=== PATIENT | female | born 1985 ===

== ENCOUNTER 2023-04-26 09:22 | Inpatient (IN) ==
[2023-04-26] MEDS ORDERED: PENICILLIN GK 6 MU in DEXTROSE 5% 250 ML IV STA (09:45)
[2023-04-26] MEDS ORDERED: OXYTOCIN 30 UNITS/NSS 30 UNITS/500 ML BAG IV PRN ×2 (09:45→15:19)
[2023-04-26] MEDS ORDERED: LIDOCAINE 1% LOCAL 20 ML VIAL INFIL PRN (09:45)
[2023-04-26] MEDS ORDERED: Patient's ALLERGY Info needs ENTERED STA (09:51)
[2023-04-26] MEDS: LACTATED RINGER'S 1,000 ML IV PRN ×2 (10:00→16:16)
[2023-04-26 10:16] LABS: Hematocrit (blood only) 42.7 % (37.0-47.0); Hemoglobin 14.2 g/dl (12.0-16.0); Mean Corpuscular Hemoglobin 28.7 pg (25.0-34.0); Mean Corpuscular Hgb Conc 33.3 g/dL (32.0-36.0); Mean Corpuscular Volume 86.3 fL (80.0-100.0); Mean Platelet Volume 12.7 fL (9.4-12.4); Platelet Count 242 K/uL (130-400); RDW Coefficient of Variation 14.4 % (11.5-14.5); RDW Standard Deviation 44.4 fL (36.4-46.3); Red Blood Count 4.95 M/uL (4.20-5.40); White Blood Count 16.26 K/ul (4.8-10.8)
[2023-04-26] MEDS ORDERED: BUPIVACAINE 0.25% PF 30 ML VIAL ONE (10:16)
[2023-04-26] MEDS ORDERED: fentaNYL citrate PF 100 MCG/2 ML VIAL ONE ×2 (10:16→18:56)
[2023-04-26] MEDS ORDERED: fentANYL 2 MCG/ML BUPIVacaine 0.125%-NSS 100ML BAG ONE (10:16)
[2023-04-26] MEDS ORDERED: LIDOCAINE 2%/EPINEPHRINE 1:200,000 20 ML PF ONE ×2 (10:16→18:56)
[2023-04-26] MEDS ORDERED: ePHEDrine sulfate 50 MG/ML AMP ONE (10:16)
[2023-04-26] MEDS ORDERED: SODIUM CHLORIDE 0.9% PF INJ 10 ML VIAL ONE (10:16)
[2023-04-26 10:30] LABS: Albumin Level 3.6 gm/dl (3.4-5.0); Anion Gap 15 (3-11); Bilirubin,Total 0.3 mg/dl (0.2-1.0); Calcium 9.3 mg/dl (8.6-10.3); Carbon Dioxide 16 mmol/L (21-32); Chloride 102 mmol/L (98-107); Potassium 3.6 mmol/L (3.5-5.1); Sodium 133 mmol/L (136-145)
[2023-04-26 10:36] LABS: Alanine Aminotransferase 33 U/L (7-52); Albumin Globulin Ratio 1.1 (0.9-2); Alkaline Phosphatase 812 U/L (34-104); Aspartate Aminotransferase 33 U/L (13-39); Blood Urea Nitrogen 10 mg/dl (6-23); Est GFR (African American) 82.2 ml/min; Est GFR (Non-African American) 70.9 ml/min; Globulin 3.4 gm/dl (2.5-4.0); Glucose 87 mg/dl (70-99(Fasting)); Lactate Dehydrogenase 251 U/L (86-244); Uric Acid 6.2 mg/dl (2.6-7.2)
--- NOTE | 2023-04-26 10:36 | History & Physical Report ---
Date of Service April 26, 2023 History of Present Illness Chief Complaint: onset of labor with SROM Primary Care Provider: NO PCP 38 F P0000 at 40.1 weeks admitted in active labor after SROM clear fluid at 0230 today. GBS is positive. Allergies Allergy/AdvReac Type Severity Reaction Status Date / Time No Known Allergies Allergy Verified 04/26/23 09:55 Home Medications Medication Instructions Recorded Confirmed Type ferrous sulfate 325 mg (65 mg 325 mg PO DAILY 04/26/23 04/26/23 History iron) tablet (iron) vit no.95-ferrous 1 tab PO DAILY 04/26/23 04/26/23 History fumarate 28 mg-folic acid 800 mcg tablet () Patient History Medical History Anemia affecting first Surgical History Pitman teeth removed Family History Other No history of previous surgery No known health problems OB History primip KENNEL HAND History neg Review of Systems All systems reviewed & are unremarkable except as noted in HPI & below Physical Exam Constitutional: WD/WN, vitals as above Eyes: PERRL, conjunctivae normal, anicteric sclerae Respiratory: normal respiratory effort, lungs clear to auscultation Cardiovascular: Rate/Rhythm: regular rate and regular rhythm Gastrointestinal (Abdomen): Inspection/Auscultation: abdomen normal to inspection Skin: no rashes, warm and dry Neurologic: patellar DTR's 2+ bilat, sensation intact Psychiatric: A+Ox3, euthymic affect Genitourinary: Manual OB Exam: + cervical dilation 8 cm, + cervical effacement 100%, + station -2 and -1 and + amniotic fluid clear OB Exam Monitor Tracing: + external FHT monitor used, + external uterine monitor used, + category I and + normal FHT variability Code Status & VTE Plan VTE Prophylaxis Plan VTE Prophylaxis will be ordered: No
[2023-04-26] MEDS ORDERED: BUPIVACAINE 0.25% PF 30 ML VIAL EPI STA (10:43)
[2023-04-26] MEDS ORDERED: NALOXONE HCL 1 MG in SODIUM CHLORIDE 0.9% 1,000 ML IV PRN (10:43)
[2023-04-26] MEDS ORDERED: diphenhydrAMINE 50 MG/ML VIAL IV PRN (10:43)
[2023-04-26] MEDS ORDERED: ePHEDrine sulfate 50 MG/ML AMP IV PRN (10:43)
[2023-04-26] MEDS ORDERED: BUPIVACAINE 0.25% PF 30 ML VIAL EPI PRN (10:43)
[2023-04-26] MEDS ORDERED: NALBUPHINE HCL 5 MG in SYRINGE 0 ML IV PRN (10:43)
[2023-04-26] MEDS ORDERED: ROPIVACAINE 0.5% PF 5 MG/ML 20 ML VIAL EPI PRN (10:43)
[2023-04-26] MEDS ORDERED: SODIUM CHLORIDE 0.9% PF INJ 10 ML VIAL EPI STA (10:43)
[2023-04-26] MEDS ORDERED: fentaNYL citrate PF 100 MCG/2 ML VIAL EPI PRN (10:43)
[2023-04-26] MEDS ORDERED: fentaNYL citrate PF 100 MCG/2 ML VIAL EPI STA (10:43)
[2023-04-26] MEDS ORDERED: LIDOCAINE 2% MPF LOCAL 5 ML VIAL EPI PRN (10:43)
[2023-04-26] MEDS ORDERED: SODIUM CHLORIDE 0.9% PF INJ 10 ML VIAL EPI PRN (10:43)
[2023-04-26] MEDS ORDERED: NALOXONE HCL 0.4 MG/1 ML VIAL/CARP IV PRN (10:43)
[2023-04-26] MEDS ORDERED: LIDOCAINE 2%/EPINEPHRINE 1:200,000 20 ML PF EPI STA (10:43)
[2023-04-26] MEDS ORDERED: ONDANSETRON INJ 2 MG/ML 2 ML VIAL IV PRN (10:43)
--- NOTE | 2023-04-26 10:43 | Anesthesiology Consultation ---
Date of Service April 26, 2023 Assessment & Plan ASA ASA2 Proposed Anesthesia Anesthesia Type: Labor Epidural Risk / Benefits Reviewed With: PT / POA / Parent / Guardian, Accepts Plan and Informed Consent Obtained History Allergies Allergy/AdvReac Type Severity Reaction Status Date / Time fructose AdvReac Vomiting Verified 04/26/23 11:24 lactose AdvReac Vomiting Verified 04/26/23 11:24 Medications Home Medications Medication Instructions Recorded Confirmed Last Taken ferrous sulfate 325 mg (65 mg 325 mg PO DAILY 04/26/23 04/26/23 04/24/23 19:00 iron) tablet (iron) vit no.95-ferrous 1 tab PO DAILY 04/26/23 04/26/23 04/25/23 19:00 fumarate 28 mg-folic acid 800 mcg tablet () Active Medications Generic Name Dose Route Start Last Admin Trade Name Freq PRN Reason Stop Dose Admin Lactated Ringer's 1,000 mls @ 125 mls/hr 04/26/23 09:45 04/26/23 10:00 Lr IV 04/28/23 09:44 999 mls/hr .Q8H PRN Administration L&D Protocol Protocol Past Medical History Medical History Anemia affecting first Exercise / Class Metabolic Activity II 4-5 Yardwork/Stairs/Walk up hill Past Family History Family History Other No history of previous surgery No known health problems Past Surgical History Surgical History [place] teeth removed Past Anesthesia History No Hx of Anesthesia Complications and No Family Hx of Anesthesia Complications History of PONV No Hx of PONV and No Hx of Motion Sickness Review of Systems denies fever/cough/ colds/ chest pain/ SOB/ BEATRIZ denies BEATRIZ Physical Exam Vital Signs Last Vital Signs Resp 20 04/26/23 10:42 ENMT Mouth: no TMJ abnormality and no dentition abnormality Thyromental Distance: > or= 3.5 Finger Breadths Mallampati Class: II Neck neck extension not limited Respiratory normal respiratory effort; no respiratory distress Auscultation: lungs clear to auscultation bilaterally Cardiovascular Rate/Rhythm: regular rate and regular rhythm Neurologic moves all extremities Psychiatric Orientation: alert and oriented x 3 Testing Laboratory Results 04/26/23 10:01 04/26/23 10:01
[2023-04-26 11:02] LABS: Creatinine Urine Random 112.6 mg/dl; Protein Creatinine Ratio Urine 0.3 (0-0.2); Total Protein Urine Random 36.9 mg/dl (0-11.9)
[2023-04-26] MEDS ORDERED: CALCIUM CARBONATE 500 MG CHEWABLE TAB PO PRN (13:09)
[2023-04-26] MEDS: PENICILLIN GK 3 MU in DEXTROSE 5% 100 ML IV PRN ×2 (14:29→18:35)
[2023-04-26] MEDS: fentANYL 2 MCG/ML BUPIVacaine 0.125%-NSS 100ML BAG EPI PRN ×2 (15:37→19:20)
[2023-04-26] MEDS ORDERED: ROPIVACAINE 0.5% 5 MG/ML 30 ML VIAL ONE (18:56)
--- NOTE | 2023-04-26 19:14 | Anesthesia Procedure Note ---
Date of Service April 26, 2023 Anesthesia Epidural Re-Dose Vital Signs Temp Pulse Resp BP Pulse Ox 36.3 C L 90 20 172/85 H 100 04/26/23 18:06 04/26/23 19:11 04/26/23 18:06 04/26/23 19:08 04/26/23 19:11 Notes Pain Intensity: 8 Dilatation (cm): 9.5 Effacement (%): 100 Called by nursing to evaluate epidural as the patient is having increased pain. The epidural was re-dosed with the following medications (all medications via epidural route) after negative aspiration of the epidural catheter for CSF/HEME. 2ml 2% lidocaine with epi, 3mL ropivacaine 0.5% and 100 mcg fetanyl via epidural pt had difficulty lifting her legs because of numbness. pt c/o all over pain. there is a small "hot spot" on her right side near her right hip. After Epidural Re-Dose Mental Status: alert / awake / arousable Pain: improving with treatment Airway Patency, RR, SpO2: stable & adequate BP & HR: stable & adequate
[2023-04-26 23:33] LABS: Cord Venous Blood PCO2 112 mmHg (30.4-57.2); Cord Venous Blood PO2 < 20 mmHg (14.1-43.3); Cord Venous Blood pH < 7.00 (7.20-7.44); O2 Saturation Cord Venous Bld < 60.0 % (<68)
[2023-04-26 23:34] LABS: CO2 Cord Arterial Blood 97 mmHg (39.1-73.5); Oxygen Sat Cord Arterial Blood < 60.0 % (<60); PO2 Cord Arterial Blood 25 mmHg (4.1-31.7); pH Cord Arterial Blood < 7.00 (7.1-7.38)
--- NOTE | 2023-04-26 23:55 | Delivery Summary ---
Vaginal Delivery Summary Date of Service April 26, 2023 Vaginal Delivery Summary live male OLIVERIO with MLE done after verbal consent from patient due to persistent deep variables with pushing. Apgars and weight pending. Cord gas sent to lab stat. Placenta delivered spontaneously and intact. 1% Lidocaine infiltrated and second degree MLE repaired with 3/0 Vicryl suture. EBL 250 ml. Final sponge, needle and instrument count are correct. Mom stable and baby to nursery.
[2023-04-27] MEDS ORDERED: BENZOCAINE 20% SPRY 85 APPLN/85 GM CAN EXT PRN (00:18)
[2023-04-27] MEDS ORDERED: HYDROCORTISONE ACETATE 25 MG SUPP PR PRN (00:18)
[2023-04-27] MEDS ORDERED: bisacodyL 10 MG SUPP PR PRN (00:18)
[2023-04-27] MEDS ORDERED: DIPHTHERIA/TETANUS/PERTUSSIS Vaccine (Tdap, Age 7+yrs) 0.5mL SYR/VL IM ONE (00:18)
[2023-04-27] MEDS ORDERED: OXYTOCIN 30 UNITS/NSS 30 UNITS/500 ML BAG IV PRN (00:18)
[2023-04-27] MEDS ORDERED: ACETAMINOPHEN 325 MG TAB PO PRN (00:18)
--- NOTE | 2023-04-27 02:48 | Anesthesia Procedure Note ---
Date of Service April 27, 2023 Anesthesia Post Epidural Note Vital Signs Vital Signs: Temp Pulse Resp BP Pulse Ox 36.7 C 102 H 18 142/59 H 94 04/27/23 01:35 04/27/23 01:36 04/27/23 01:35 04/27/23 01:36 04/26/23 23:18 Pain Intensity Bilateral Abdomen: Pain Intensity: 0 Notes Mental Status: alert / awake / arousable and participated in evaluation Nausea / Vomiting: adequately controlled Pain: adequately controlled Airway Patency, RR, SpO2: stable & adequate BP & HR: stable & adequate Hydration State: stable & adequate Neuraxial Anesthesia: was administered and sensory block resolved Anesthetic Complications: no major complications apparent and Pt Satisfied with anesthetic care Epidural: Removed without complications and With tip intact
[2023-04-27] MEDS: IBUPROFEN 600 MG TAB PO PRN ×4 (04:37→22:23)
[2023-04-27 07:14] LABS: Hematocrit (blood only) 34.8 % (37.0-47.0); Hemoglobin 11.8 g/dl (12.0-16.0); Mean Corpuscular Hgb Conc 33.9 g/dL (32.0-36.0); Mean Corpuscular Volume 85.5 fL (80.0-100.0); Mean Platelet Volume 12.8 fL (9.4-12.4); Platelet Count 207 K/uL (130-400); RDW Coefficient of Variation 14.8 % (11.5-14.5); RDW Standard Deviation 44.7 fL (36.4-46.3); Red Blood Count 4.07 M/uL (4.20-5.40); White Blood Count 30.76 K/ul (4.8-10.8)
--- NOTE | 2023-04-27 08:40 | Obstetrical Progress Note ---
Date of Service April 27, 2023 Assessment & Plan Admission and Anticipated Discharge Date Admission Date: April 26, 2023 Subjective Patient is seen and examined. She feels well, no complaints. Hs not ambulated yet, left leg was numb but now coming back. Used bed side commode and urinated. Tolerating regular diet with out N&V Bleeding is minimal No fever/ chills/ CP/ SOB/ N&V/ Leg pain/ MENDEZ Pumping her milk, baby was transferred to [facility] Vital Signs Temp Pulse Pulse Resp BP BP Pulse Ox 04/27/23 03:05 36.6 C 103 H 20 145/92 H 99 04/27/23 01:36 102 H 142/59 H 04/27/23 01:35 36.7 C 18 04/27/23 01:20 113 H 138/66 04/27/23 01:17 108 H 140/86 04/27/23 01:05 18 04/27/23 00:50 97 H 160/99 H 04/27/23 00:35 20 04/27/23 00:35 100 H 160/87 H 04/27/23 00:20 16 04/27/23 00:20 100 H 162/85 H 04/27/23 00:05 18 04/27/23 00:05 103 H 150/82 H 04/26/23 23:50 18 04/26/23 23:50 111 H 162/88 H 04/26/23 23:36 113 H 146/89 H 04/26/23 23:35 36.6 C 20 04/26/23 23:18 123 H 94 04/26/23 23:14 129 H 93 04/26/23 23:13 135 H 88 L 04/26/23 23:08 134 H 162/73 H 100 04/26/23 23:03 136 H 94 04/26/23 22:58 147 H 95 04/26/23 22:55 148 H 20 158/121 H 04/26/23 22:53 146 H 92 04/26/23 22:51 151 H 94 04/26/23 22:48 150 H 94 04/26/23 22:46 151 H 90 04/26/23 22:43 144 H 97 04/26/23 22:41 156 H 86 L 04/26/23 22:40 16 04/26/23 22:40 16 04/26/23 22:38 93 04/26/23 22:38 143 H 04/26/23 22:38 153 H 141/94 H 04/26/23 22:35 155 H 93 04/26/23 22:32 144 H 95 04/26/23 22:29 141 H 91 04/26/23 22:27 147 H 99 04/26/23 22:23 143 H 91 04/26/23 22:22 133 H 171/94 H 98 04/26/23 22:17 132 H 98 04/26/23 22:16 136 H 84 L 04/26/23 22:12 138 H 99 04/26/23 22:11 137 H 75 L 04/26/23 22:10 18 04/26/23 22:10 18 04/26/23 22:07 144 H 100 04/26/23 22:02 115 H 99 04/26/23 21:57 119 H 99 04/26/23 21:55 146 H 18 86 L 04/26/23 21:52 107 H 100 04/26/23 21:47 112 H 98 04/26/23 21:42 109 H 99 04/26/23 21:38 116 H 93 04/26/23 21:37 112 H 159/98 H 04/26/23 21:36 117 H 99 04/26/23 21:31 119 H 98 04/26/23 21:26 108 H 98 04/26/23 21:25 18 04/26/23 21:25 36.7 C 18 04/26/23 21:23 102 H 157/92 H 04/26/23 21:21 100 04/26/23 21:21 115 H 04/26/23 21:21 102 H 88 L 04/26/23 21:16 90 99 04/26/23 21:12 94 H 93 04/26/23 21:11 92 H 96 04/26/23 21:08 78 139/71 04/26/23 21:06 81 97 04/26/23 21:01 76 97 04/26/23 21:00 16 04/26/23 21:00 16 04/26/23 20:56 80 97 04/26/23 20:53 78 140/68 04/26/23 20:51 78 99 04/26/23 20:46 85 98 04/26/23 20:41 76 98 O2 Del Method 12/14/23 03:05 Room Air 04/27/23 01:36 04/27/23 01:35 04/27/23 01:20 04/27/23 01:17 04/27/23 01:05 04/27/23 00:50 04/27/23 00:35 04/27/23 00:35 04/27/23 00:20 04/27/23 00:20 04/27/23 00:05 04/27/23 00:05 04/26/23 23:50 04/26/23 23:50 04/26/23 23:36 04/26/23 23:35 04/26/23 23:18 04/26/23 23:14 04/26/23 23:13 04/26/23 23:08 04/26/23 23:03 04/26/23 22:58 04/26/23 22:55 04/26/23 22:53 04/26/23 22:51 04/26/23 22:48 04/26/23 22:46 04/26/23 22:43 04/26/23 22:41 04/26/23 22:40 04/26/23 22:40 04/26/23 22:38 04/26/23 22:38 04/26/23 22:38 04/26/23 22:35 04/26/23 22:32 04/26/23 22:29 04/26/23 22:27 04/26/23 22:23 04/26/23 22:22 04/26/23 22:17 04/26/23 22:16 04/26/23 22:12 04/26/23 22:11 04/26/23 22:10 04/26/23 22:10 04/26/23 22:07 04/26/23 22:02 04/26/23 21:57 04/26/23 21:55 04/26/23 21:52 04/26/23 21:47 04/26/23 21:42 04/26/23 21:38 04/26/23 21:37 04/26/23 21:36 04/26/23 21:31 04/26/23 21:26 04/26/23 21:25 04/26/23 21:25 04/26/23 21:23 04/26/23 21:21 04/26/23 21:21 04/26/23 21:21 04/26/23 21:16 04/26/23 21:12 04/26/23 21:11 04/26/23 21:08 04/26/23 21:06 04/26/23 21:01 04/26/23 21:00 04/26/23 21:00 04/26/23 20:56 04/26/23 20:53 04/26/23 20:51 04/26/23 20:46 04/26/23 20:41 Lab Results 04/26/23 04/26/23 04/26/23 Range/Units 10:01 23:02 23:02 WBC 16.26 H (4.8-10.8) K/ul RBC 4.95 (4.20-5.40) M/uL Hgb 14.2 (12.0-16.0) g/dl Hct 42.7 (37.0-47.0) % MCV 86.3 (80.0-100.0) fL MCH 28.7 (25.0-34.0) pg MCHC 33.3 (32.0-36.0) g/dL RDW Std Deviation 44.4 (36.4-46.3) fL RDW Coeff of Robb 14.4 (11.5-14.5) % Plt Count 242 (130-400) K/uL MPV 12.7 H (9.4-12.4) fL Cord ABG pH < 7.00 L (7.1-7.38) Cord ABG pCO2 97 H (39.1-73.5) mmHg Cord ABG pO2 25 (4.1-31.7) mmHg Cord ABG HCO3 TNP Cord ABG Base Excess TNP Cord ABG O2 Sat < 60.0 (<60) % Cord VBG pH < 7.00 L (7.20-7.44) Cord VBG pCO2 112 H (30.4-57.2) mmHg Cord VBG pO2 < 20 (14.1-43.3) mmHg Cord VBG HCO3 TNP Cord VBG Base Excess TNP Cord VBG O2 Sat < 60.0 (<68) % Blood Gas Comments LÓPEZ LÓPEZ Sodium 133 L (136-145) mmol/L Potassium 3.6 (3.5-5.1) mmol/L Chloride 102 (98-107) mmol/L Carbon Dioxide 16 L (21-32) mmol/L Anion Gap 15 H (3-11) BUN 10 (6-23) mg/dl Creatinine 1.00 (0.6-1.2) mg/dl Est Cr Clr Drug Dosing Not Reportable Est GFR ( Amer) 82.2 ml/min Est GFR (Non-Af Amer) 70.9 ml/min BUN/Creatinine Ratio 10.0 (10-20) Glucose 87 (70-99(Fasting)) mg/dl Lactate (0.4-2.0) mmol/L Uric Acid 6.2 (2.6-7.2) mg/dl Calcium 9.3 (8.6-10.3) mg/dl Total Bilirubin 0.3 (0.2-1.0) mg/dl Direct Bilirubin 0.0 (0-0.2) mg/dl AST 33 (13-39) U/L ALT 33 (7-52) U/L Alkaline Phosphatase 812 H (34-104) U/L Lactate Dehydrogenase 251 H (86-244) U/L Total Protein 7.0 (6.0-8.3) gm/dl Albumin 3.6 (3.4-5.0) gm/dl Globulin 3.4 (2.5-4.0) gm/dl Albumin/Globulin Ratio 1.1 (0.9-2) Ur Random Creatinine mg/dl U Random Total Protein (0-11.9) mg/dl Protein/Creatinin Ratio (0-0.2) 04/26/23 04/27/23 04/27/23 Range/Units Unknown 06:21 08:28 WBC 30.76 H* D (4.8-10.8) K/ul RBC 4.07 L (4.20-5.40) M/uL Hgb 11.8 L (12.0-16.0) g/dl Hct 34.8 L (37.0-47.0) % MCV 85.5 (80.0-100.0) fL MCH 29.0 (25.0-34.0) pg MCHC 33.9 (32.0-36.0) g/dL RDW Std Deviation 44.7 (36.4-46.3) fL RDW Coeff of Robb 14.8 H (11.5-14.5) % Plt Count 207 (130-400) K/uL MPV 12.8 H (9.4-12.4) fL Cord ABG pH (7.1-7.38) Cord ABG pCO2 (39.1-73.5) mmHg Cord ABG pO2 (4.1-31.7) mmHg Cord ABG HCO3 Cord ABG Base Excess Cord ABG O2 Sat (<60) % Cord VBG pH (7.20-7.44) Cord VBG pCO2 (30.4-57.2) mmHg Cord VBG pO2 (14.1-43.3) mmHg Cord VBG HCO3 Cord VBG Base Excess Cord VBG O2 Sat (<68) % Blood Gas Comments Sodium (136-145) mmol/L Potassium (3.5-5.1) mmol/L Chloride (98-107) mmol/L Carbon Dioxide (21-32) mmol/L Anion Gap (3-11) BUN (6-23) mg/dl Creatinine (0.6-1.2) mg/dl Est Cr Clr Drug Dosing Est GFR ( Amer) ml/min Est GFR (Non-Af Amer) ml/min BUN/Creatinine Ratio (10-20) Glucose (70-99(Fasting)) mg/dl Lactate 2.0 (0.4-2.0) mmol/L Uric Acid (2.6-7.2) mg/dl Calcium (8.6-10.3) mg/dl Total Bilirubin (0.2-1.0) mg/dl Direct Bilirubin (0-0.2) mg/dl AST (13-39) U/L ALT (7-52) U/L Alkaline Phosphatase (34-104) U/L Lactate Dehydrogenase (86-244) U/L Total Protein (6.0-8.3) gm/dl Albumin (3.4-5.0) gm/dl Globulin (2.5-4.0) gm/dl Albumin/Globulin Ratio (0.9-2) Ur Random Creatinine 112.6 mg/dl U Random Total Protein 36.9 H (0-11.9) mg/dl Protein/Creatinin Ratio 0.3 H (0-0.2) PE: General: Alert, orientedx3, NAD Abd: soft, NT, fundus firm, below Umbilicus Perineum intact, Lochia rubra minimal Ext; NT, 1+ edema on dordum of feet and legs, Homans sign ne/ neg, able to move left leg but waker than right side AP: 38 yo s/p , ppd# 1 VSS Afebrile WBCC elevated at 30K, prolonged ROM, intraamniotic infection? Plan to run more labs and start IV AB Elevated BP, no symptoms, check LFT Continue to monitor closely All questions were answered D/C home tomorrow Results & Data Vital Signs (Past 12 Hours) Vital Signs Temp Pulse Pulse Resp BP BP Pulse Ox 04/27/23 03:05 36.6 C 103 H 20 145/92 H 99 04/27/23 01:36 102 H 142/59 H 04/27/23 01:35 36.7 C 18 04/27/23 01:20 113 H 138/66 04/27/23 01:17 108 H 140/86 04/27/23 01:05 18 04/27/23 00:50 97 H 160/99 H 04/27/23 00:35 20 04/27/23 00:35 100 H 160/87 H 04/27/23 00:20 16 04/27/23 00:20 100 H 162/85 H 04/27/23 00:05 18 04/27/23 00:05 103 H 150/82 H 04/26/23 23:50 18 04/26/23 23:50 111 H 162/88 H 04/26/23 23:36 113 H 146/89 H 04/26/23 23:35 36.6 C 20 04/26/23 23:18 123 H 94 04/26/23 23:14 129 H 93 04/26/23 23:13 135 H 88 L 04/26/23 23:08 134 H 162/73 H 100 04/26/23 23:03 136 H 94 04/26/23 22:58 147 H 95 04/26/23 22:55 148 H 20 158/121 H 04/26/23 22:53 146 H 92 04/26/23 22:51 151 H 94 04/26/23 22:48 150 H 94 04/26/23 22:46 151 H 90 04/26/23 22:43 144 H 97 04/26/23 22:41 156 H 86 L 04/26/23 22:40 16 04/26/23 22:40 16 04/26/23 22:38 93 04/26/23 22:38 143 H 04/26/23 22:38 153 H 141/94 H 04/26/23 22:35 155 H 93 04/26/23 22:32 144 H 95 04/26/23 22:29 141 H 91 04/26/23 22:27 147 H 99 04/26/23 22:23 143 H 91 04/26/23 22:22 133 H 171/94 H 98 04/26/23 22:17 132 H 98 04/26/23 22:16 136 H 84 L 04/26/23 22:12 138 H 99 04/26/23 22:11 137 H 75 L 04/26/23 22:10 18 04/26/23 22:10 18 04/26/23 22:07 144 H 100 04/26/23 22:02 115 H 99 04/26/23 21:57 119 H 99 04/26/23 21:55 146 H 18 86 L 04/26/23 21:52 107 H 100 04/26/23 21:47 112 H 98 04/26/23 21:42 109 H 99 04/26/23 21:38 116 H 93 04/26/23 21:37 112 H 159/98 H 04/26/23 21:36 117 H 99 04/26/23 21:31 119 H 98 04/26/23 21:26 108 H 98 04/26/23 21:25 18 04/26/23 21:25 36.7 C 18 04/26/23 21:23 102 H 157/92 H 04/26/23 21:21 100 04/26/23 21:21 115 H 04/26/23 21:21 102 H 88 L 04/26/23 21:16 90 99 04/26/23 21:12 94 H 93 04/26/23 21:11 92 H 96 04/26/23 21:08 78 139/71 04/26/23 21:06 81 97 04/26/23 21:01 76 97 04/26/23 21:00 16 04/26/23 21:00 16 04/26/23 20:56 80 97 04/26/23 20:53 78 140/68 04/26/23 20:51 78 99 04/26/23 20:46 85 98 04/26/23 20:41 76 98 04/26/23 20:37 81 138/72 O2 Del Method 04/27/23 03:05 Room Air 04/27/23 01:36 04/27/23 01:35 04/27/23 01:20 04/27/23 01:17 04/27/23 01:05 04/27/23 00:50 04/27/23 00:35 04/27/23 00:35 04/27/23 00:20 04/27/23 00:20 04/27/23 00:05 04/27/23 00:05 04/26/23 23:50 04/26/23 23:50 04/26/23 23:36 04/26/23 23:35 04/26/23 23:18 04/26/23 23:14 04/26/23 23:13 04/26/23 23:08 04/26/23 23:03 04/26/23 22:58 04/26/23 22:55 04/26/23 22:53 04/26/23 22:51 04/26/23 22:48 04/26/23 22:46 04/26/23 22:43 04/26/23 22:41 04/26/23 22:40 04/26/23 22:40 04/26/23 22:38 04/26/23 22:38 04/26/23 22:38 04/26/23 22:35 04/26/23 22:32 04/26/23 22:29 04/26/23 22:27 04/26/23 22:23 04/26/23 22:22 04/26/23 22:17 04/26/23 22:16 04/26/23 22:12 04/26/23 22:11 04/26/23 22:10 04/26/23 22:10 04/26/23 22:07 04/26/23 22:02 04/26/23 21:57 04/26/23 21:55 04/26/23 21:52 04/26/23 21:47 04/26/23 21:42 04/26/23 21:38 04/26/23 21:37 04/26/23 21:36 04/26/23 21:31 04/26/23 21:26 04/26/23 21:25 04/26/23 21:25 04/26/23 21:23 04/26/23 21:21 04/26/23 21:21 04/26/23 21:21 04/26/23 21:16 04/26/23 21:12 04/26/23 21:11 04/26/23 21:08 04/26/23 21:06 04/26/23 21:01 04/26/23 21:00 04/26/23 21:00 04/26/23 20:56 04/26/23 20:53 04/26/23 20:51 04/26/23 20:46 04/26/23 20:41 04/26/23 20:37
[2023-04-27 08:45] LABS: Hematocrit (blood only) 34.6 % (37.0-47.0); Hemoglobin 11.6 g/dl (12.0-16.0); Mean Corpuscular Hemoglobin 28.5 pg (25.0-34.0); Mean Corpuscular Hgb Conc 33.5 g/dL (32.0-36.0); Mean Platelet Volume 12.7 fL (9.4-12.4); Platelet Count 196 K/uL (130-400); RDW Coefficient of Variation 14.8 % (11.5-14.5); RDW Standard Deviation 44.8 fL (36.4-46.3); Red Blood Count 4.07 M/uL (4.20-5.40)
[2023-04-27] MEDS ORDERED: NON-FORMULARY MEDICATION (Pnv Cmb#95-Ferrous Fumarate-Fa [Prenatal] 28 mg iron- 800 mcg Ta PO SCH (09:00)
[2023-04-27] MEDS ORDERED: NON-FORMULARY MEDICATION (Ferrous Sulfate [Iron] 325 mg (65 mg iron) Tablet) PO SCH (09:00)
[2023-04-27 09:11] LABS: Basophils # (auto) 0.06 K/uL (0.00-0.20); Basophils % (auto) 0.2 %; Eosinophils # (auto) 0.07 K/uL (0.00-0.50); Eosinophils % (auto) 0.2 %; Immature Granulocytes # (auto) 0.25 K/uL (0.01-0.20); Immature Granulocytes % (auto) 0.9 %; Lymphocytes # (auto) 2.18 K/uL (1.20-3.40); Lymphocytes % (auto) 7.4 %; Monocytes # (auto) 1.46 K/uL (0.11-0.59); Neutrophils # (auto) 25.38 K/uL (1.40-6.50); Neutrophils % (auto) 86.3 %; Polychromasia 1+
[2023-04-27 09:14] LABS: Albumin Globulin Ratio 1.2 (0.9-2); Albumin Level 2.9 gm/dl (3.4-5.0); BUN Creatinine Ratio 9.8 (10-20); Bilirubin,Total 0.3 mg/dl (0.2-1.0); Calcium 8.5 mg/dl (8.6-10.3); Creatinine Clr Calc Pharmacy 82.4 ml/min; Est GFR (African American) 80.2 ml/min; Est GFR (Non-African American) 69.2 ml/min; Globulin 2.4 gm/dl (2.5-4.0); Potassium 4.1 mmol/L (3.5-5.1); Total Protein 5.3 gm/dl (6.0-8.3)
[2023-04-27] MEDS: PRENATAL VITAMIN 1 TAB PO SCH (09:27)
[2023-04-27] MEDS: DOCUSATE SODIUM 100 MG CAP PO SCH ×2 (09:27→20:29)
[2023-04-27] MEDS: CLINDAMYCIN/D5W 900 MG/50 ML BAG IV SCH ×3 (09:29→23:51)
[2023-04-27] MEDS: ceFAZolin 2000MG 2,000 MG/15 ML SYR IV SCH ×4 (09:29→23:50)
[2023-04-27 10:25] LABS: Appearance Urine Cloudy (Clear); Bilirubin Urine Negative (Negative); Blood Urine 3+ (Negative); Color Urine Red; Glucose Urine UA Negative (Negative); Ketones Urine Negative (Negative); Leukocyte Esterase Urine 2+ (Negative); Nitrite Urine Negative (Negative); Protein Urine 1+ (Negative); Specific Gravity Urine 1.006 (1.000-1.030); Urobilinogen Urine Negative (Negative); pH Urine 5.5 (4.5-7.5)
[2023-04-27 10:42] LABS: RBC Urine Automated >30 /hpf (0-4)
[2023-04-27 10:46] LABS: WBC Urine Automated >30 /hpf (0-5)
[2023-04-27] MEDS: FERROUS SULFATE 325 MG TAB PO SCH (12:50)
[2023-04-27] MEDS: LABETALOL HCL 100 MG TAB PO SCH ×2 (13:03→22:00)
[2023-04-27] MEDS ORDERED: bisacodyL 5 MG TABEC PO SCH (20:00)
[2023-04-28] MEDS: IBUPROFEN 600 MG TAB PO PRN ×2 (06:58→12:31)
[2023-04-28 07:21] LABS: Basophils # (auto) 0.03 K/uL (0.00-0.20); Basophils % (auto) 0.2 %; Eosinophils # (auto) 0.02 K/uL (0.00-0.50); Eosinophils % (auto) 0.1 %; Hematocrit (blood only) 28.5 % (37.0-47.0); Hemoglobin 9.5 g/dl (12.0-16.0); Immature Granulocytes # (auto) 0.07 K/uL (0.01-0.20); Immature Granulocytes % (auto) 0.5 %; Lymphocytes # (auto) 2.22 K/uL (1.20-3.40); Lymphocytes % (auto) 14.9 %; Mean Corpuscular Hgb Conc 33.3 g/dL (32.0-36.0); Mean Corpuscular Volume 86.9 fL (80.0-100.0); Mean Platelet Volume 12.6 fL (9.4-12.4); Monocytes # (auto) 0.95 K/uL (0.11-0.59); Monocytes % (auto) 6.4 %; Neutrophils # (auto) 11.61 K/uL (1.40-6.50); Neutrophils % (auto) 77.9 %; Platelet Count 148 K/uL (130-400); RDW Coefficient of Variation 15.2 % (11.5-14.5); RDW Standard Deviation 47.8 fL (36.4-46.3); Red Blood Count 3.28 M/uL (4.20-5.40)
[2023-04-28 07:23] LABS: Albumin Globulin Ratio 1.2 (0.9-2); Albumin Level 2.6 gm/dl (3.4-5.0); BUN Creatinine Ratio 12.5 (10-20); Bilirubin,Total 0.2 mg/dl (0.2-1.0); Creatinine Clr Calc Pharmacy 80.8 ml/min; Est GFR (African American) 78.4 ml/min; Est GFR (Non-African American) 67.6 ml/min; Globulin 2.2 gm/dl (2.5-4.0); Total Protein 4.8 gm/dl (6.0-8.3)
--- NOTE | 2023-04-28 07:49 | Obstetrical Progress Note ---
Date of Service April 28, 2023 Assessment & Plan Admission and Anticipated Discharge Date Admission Date: April 26, 2023 Subjective Patient is seen and examined. She feels well, no complaints. Ambulating without dizziness Voiding without difficulty Tolerating regular diet with out N&V Bleeding is minimal No fever/ chills/ CP/ SOB/ N&V/ Leg pain Pumping to breast feed. Baby is in NICU, C Vital Signs Temp Pulse Resp BP BP Pulse Ox O2 Del Method 04/28/23 00:00 36.5 C 75 20 132/88 97 Room Air 04/27/23 21:20 86 16 139/92 100 Room Air 04/27/23 19:30 36.5 C 84 16 146/90 H 98 Room Air 04/27/23 16:00 36.7 C 88 16 145/96 H 98 Room Air 04/27/23 15:30 Room Air 04/27/23 12:45 36.4 C L 79 18 150/89 H 147/91 H 100 Room Air 04/27/23 08:00 36.7 C 91 H 16 138/88 96 Room Air Intake and Output 04/27/23 04/28/23 04/28/23 22:59 06:59 14:59 Intake Total 50 / 150 50 / 150 Balance 50 / -600 50 / -600 Intake: IV 50 / 150 50 / 150 Clindamycin/D5w 900 mg In 50 ml 50 / 150 50 / 150 @ 100 mls/hr IV Q8H [facility] Rx#: [id number] Lab Results 04/26/23 04/26/23 04/26/23 Range/Units 10:01 23:02 23:02 WBC 16.26 H (4.8-10.8) K/ul RBC 4.95 (4.20-5.40) M/uL Hgb 14.2 (12.0-16.0) g/dl Hct 42.7 (37.0-47.0) % MCV 86.3 (80.0-100.0) fL MCH 28.7 (25.0-34.0) pg MCHC 33.3 (32.0-36.0) g/dL RDW Std Deviation 44.4 (36.4-46.3) fL RDW Coeff of Robb 14.4 (11.5-14.5) % Plt Count 242 (130-400) K/uL MPV 12.7 H (9.4-12.4) fL Immature Gran % (Auto) % Neut % (Auto) % Lymph % (Auto) % Kay % (Auto) % Eos % (Auto) % Baso % (Auto) % Neut # (Auto) (1.40-6.50) K/uL Lymph # (Auto) (1.20-3.40) K/uL Kay # (Auto) (0.11-0.59) K/uL Eos # (Auto) (0.00-0.50) K/uL Baso # (Auto) (0.00-0.20) K/uL Immature Gran # (Auto) (0.01-0.20) K/uL Polychromasia Cord ABG pH < 7.00 L (7.1-7.38) Cord ABG pCO2 97 H (39.1-73.5) mmHg Cord ABG pO2 25 (4.1-31.7) mmHg Cord ABG HCO3 TNP Cord ABG Base Excess TNP Cord ABG O2 Sat < 60.0 (<60) % Cord VBG pH < 7.00 L (7.20-7.44) Cord VBG pCO2 112 H (30.4-57.2) mmHg Cord VBG pO2 < 20 (14.1-43.3) mmHg Cord VBG HCO3 TNP Cord VBG Base Excess TNP Cord VBG O2 Sat < 60.0 (<68) % Blood Gas Comments LÓPEZ LÓPEZ Sodium 133 L (136-145) mmol/L Potassium 3.6 (3.5-5.1) mmol/L Chloride 102 (98-107) mmol/L Carbon Dioxide 16 L (21-32) mmol/L Anion Gap 15 H (3-11) BUN 10 (6-23) mg/dl Creatinine 1.00 (0.6-1.2) mg/dl Est Cr Clr Drug Dosing Not Reportable Est GFR ( Amer) 82.2 ml/min Est GFR (Non-Af Amer) 70.9 ml/min BUN/Creatinine Ratio 10.0 (10-20) Glucose 87 (70-99(Fasting)) mg/dl Lactate (0.4-2.0) mmol/L Uric Acid 6.2 (2.6-7.2) mg/dl Calcium 9.3 (8.6-10.3) mg/dl Total Bilirubin 0.3 (0.2-1.0) mg/dl Direct Bilirubin 0.0 (0-0.2) mg/dl AST 33 (13-39) U/L ALT 33 (7-52) U/L Alkaline Phosphatase 812 H (34-104) U/L Lactate Dehydrogenase 251 H (86-244) U/L Total Protein 7.0 (6.0-8.3) gm/dl Albumin 3.6 (3.4-5.0) gm/dl Globulin 3.4 (2.5-4.0) gm/dl Albumin/Globulin Ratio 1.1 (0.9-2) Urine Color Urine Appearance (Clear) Urine pH (4.5-7.5) Ur Specific [place] (1.000-1.030) Urine Protein (Negative) Urine Glucose (UA) (Negative) Urine Ketones (Negative) Urine Blood (Negative) Urine Nitrite (Negative) Urine Bilirubin (Negative) Urine Urobilinogen (Negative) Ur Leukocyte Esterase (Negative) Urine WBC (Auto) (0-5) /hpf Urine RBC (Auto) (0-4) /hpf U Hyaline Cast (Auto) U Epithel Cells (Auto) (0-5) /lpf Urine Bacteria (Auto) Urine Yeast Ur Random Creatinine mg/dl U Random Total Protein (0-11.9) mg/dl Protein/Creatinin Ratio (0-0.2) 04/26/23 04/27/23 04/27/23 Range/Units Unknown 06:21 08:25 WBC 30.76 H* D 29.40 H (4.8-10.8) K/ul RBC 4.07 L 4.07 L (4.20-5.40) M/uL Hgb 11.8 L 11.6 L (12.0-16.0) g/dl Hct 34.8 L 34.6 L (37.0-47.0) % MCV 85.5 85.0 (80.0-100.0) fL MCH 29.0 28.5 (25.0-34.0) pg MCHC 33.9 33.5 (32.0-36.0) g/dL RDW Std Deviation 44.7 44.8 (36.4-46.3) fL RDW Coeff of Robb 14.8 H 14.8 H (11.5-14.5) % Plt Count 207 196 (130-400) K/uL MPV 12.8 H 12.7 H (9.4-12.4) fL Immature Gran % (Auto) 0.9 % Neut % (Auto) 86.3 % Lymph % (Auto) 7.4 % Kay % (Auto) 5.0 % Eos % (Auto) 0.2 % Baso % (Auto) 0.2 % Neut # (Auto) 25.38 H (1.40-6.50) K/uL Lymph # (Auto) 2.18 (1.20-3.40) K/uL Kay # (Auto) 1.46 H (0.11-0.59) K/uL Eos # (Auto) 0.07 (0.00-0.50) K/uL Baso # (Auto) 0.06 (0.00-0.20) K/uL Immature Gran # (Auto) 0.25 H (0.01-0.20) K/uL Polychromasia 1+ Cord ABG pH (7.1-7.38) Cord ABG pCO2 (39.1-73.5) mmHg Cord ABG pO2 (4.1-31.7) mmHg Cord ABG HCO3 Cord ABG Base Excess Cord ABG O2 Sat (<60) % Cord VBG pH (7.20-7.44) Cord VBG pCO2 (30.4-57.2) mmHg Cord VBG pO2 (14.1-43.3) mmHg Cord VBG HCO3 Cord VBG Base Excess Cord VBG O2 Sat (<68) % Blood Gas Comments Sodium 133 L (136-145) mmol/L Potassium 4.1 (3.5-5.1) mmol/L Chloride 106 (98-107) mmol/L Carbon Dioxide 20 L (21-32) mmol/L Anion Gap 7 (3-11) BUN 10 (6-23) mg/dl Creatinine 1.02 (0.6-1.2) mg/dl Est Cr Clr Drug Dosing 82.4 Est GFR ( Amer) 80.2 ml/min Est GFR (Non-Af Amer) 69.2 ml/min BUN/Creatinine Ratio 9.8 L (10-20) Glucose 114 H (70-99(Fasting)) mg/dl Lactate (0.4-2.0) mmol/L Uric Acid (2.6-7.2) mg/dl Calcium 8.5 L (8.6-10.3) mg/dl Total Bilirubin 0.3 (0.2-1.0) mg/dl Direct Bilirubin (0-0.2) mg/dl AST 56 H (13-39) U/L ALT 28 (7-52) U/L Alkaline Phosphatase 505 H (34-104) U/L Lactate Dehydrogenase (86-244) U/L Total Protein 5.3 L D (6.0-8.3) gm/dl Albumin 2.9 L (3.4-5.0) gm/dl Globulin 2.4 L (2.5-4.0) gm/dl Albumin/Globulin Ratio 1.2 (0.9-2) Urine Color Urine Appearance (Clear) Urine pH (4.5-7.5) Ur Specific [place] (1.000-1.030) Urine Protein (Negative) Urine Glucose (UA) (Negative) Urine Ketones (Negative) Urine Blood (Negative) Urine Nitrite (Negative) Urine Bilirubin (Negative) Urine Urobilinogen (Negative) Ur Leukocyte Esterase (Negative) Urine WBC (Auto) (0-5) /hpf Urine RBC (Auto) (0-4) /hpf U Hyaline Cast (Auto) U Epithel Cells (Auto) (0-5) /lpf Urine Bacteria (Auto) Urine Yeast Ur Random Creatinine 112.6 mg/dl U Random Total Protein 36.9 H (0-11.9) mg/dl Protein/Creatinin Ratio 0.3 H (0-0.2) 04/27/23 04/27/23 04/28/23 Range/Units 08:28 09:45 06:36 WBC 14.90 H D (4.8-10.8) K/ul RBC 3.28 L (4.20-5.40) M/uL Hgb 9.5 L (12.0-16.0) g/dl Hct 28.5 L (37.0-47.0) % MCV 86.9 (80.0-100.0) fL MCH 29.0 (25.0-34.0) pg MCHC 33.3 (32.0-36.0) g/dL RDW Std Deviation 47.8 H (36.4-46.3) fL RDW Coeff of Robb 15.2 H (11.5-14.5) % Plt Count 148 (130-400) K/uL MPV 12.6 H (9.4-12.4) fL Immature Gran % (Auto) 0.5 % Neut % (Auto) 77.9 % Lymph % (Auto) 14.9 % Kay % (Auto) 6.4 % Eos % (Auto) 0.1 % Baso % (Auto) 0.2 % Neut # (Auto) 11.61 H (1.40-6.50) K/uL Lymph # (Auto) 2.22 (1.20-3.40) K/uL Kay # (Auto) 0.95 H (0.11-0.59) K/uL Eos # (Auto) 0.02 (0.00-0.50) K/uL Baso # (Auto) 0.03 (0.00-0.20) K/uL Immature Gran # (Auto) 0.07 (0.01-0.20) K/uL Polychromasia Cord ABG pH (7.1-7.38) Cord ABG pCO2 (39.1-73.5) mmHg Cord ABG pO2 (4.1-31.7) mmHg Cord ABG HCO3 Cord ABG Base Excess Cord ABG O2 Sat (<60) % Cord VBG pH (7.20-7.44) Cord VBG pCO2 (30.4-57.2) mmHg Cord VBG pO2 (14.1-43.3) mmHg Cord VBG HCO3 Cord VBG Base Excess Cord VBG O2 Sat (<68) % Blood Gas Comments Sodium 138 (136-145) mmol/L Potassium 4.0 (3.5-5.1) mmol/L Chloride 110 H (98-107) mmol/L Carbon Dioxide 22 (21-32) mmol/L Anion Gap 6 (3-11) BUN 13 (6-23) mg/dl Creatinine 1.04 (0.6-1.2) mg/dl Est Cr Clr Drug Dosing 80.8 Est GFR ( Amer) 78.4 ml/min Est GFR (Non-Af Amer) 67.6 ml/min BUN/Creatinine Ratio 12.5 (10-20) Glucose 63 L (70-99(Fasting)) mg/dl Lactate 2.0 (0.4-2.0) mmol/L Uric Acid (2.6-7.2) mg/dl Calcium 8.0 L (8.6-10.3) mg/dl Total Bilirubin 0.2 (0.2-1.0) mg/dl Direct Bilirubin (0-0.2) mg/dl AST 41 H (13-39) U/L ALT 19 (7-52) U/L Alkaline Phosphatase 373 H (34-104) U/L Lactate Dehydrogenase (86-244) U/L Total Protein 4.8 L (6.0-8.3) gm/dl Albumin 2.6 L (3.4-5.0) gm/dl Globulin 2.2 L (2.5-4.0) gm/dl Albumin/Globulin Ratio 1.2 (0.9-2) Urine Color Red Urine Appearance Cloudy A (Clear) Urine pH 5.5 (4.5-7.5) Ur Specific [place] 1.006 (1.000-1.030) Urine Protein 1+ H (Negative) Urine Glucose (UA) Negative (Negative) Urine Ketones Negative (Negative) Urine Blood 3+ H (Negative) Urine Nitrite Negative (Negative) Urine Bilirubin Negative (Negative) Urine Urobilinogen Negative (Negative) Ur Leukocyte Esterase 2+ H (Negative) Urine WBC (Auto) >30 H (0-5) /hpf Urine RBC (Auto) >30 H (0-4) /hpf U Hyaline Cast (Auto) Not Reportable U Epithel Cells (Auto) 5-10 H (0-5) /lpf Urine Bacteria (Auto) Not Reportable Urine Yeast Not Reportable Ur Random Creatinine mg/dl U Random Total Protein (0-11.9) mg/dl Protein/Creatinin Ratio (0-0.2) PE: General: Alert, orientedx3, NAD Abd: soft, NT, fundus firm, below Umbilicus Perineum intact, Lochia rubra minimal Ext; NT, 1+/1+ edema, Homans signneg/ neg AP: 38 yo s/p , ppd# 2 VSS Afebrile doing well On Labetalol for HT, stable Labs stable, WBC came donw to 14 K from 30K Continue to monitor All questions were answered D/C home , f/u in office in a week for BP check. Results & Data Vital Signs (Past 12 Hours) Vital Signs Temp Pulse Resp BP Pulse Ox O2 Del Method 04/28/23 00:00 36.5 C 75 20 132/88 97 Room Air 04/27/23 21:20 86 16 139/92 100 Room Air
[2023-04-28] MEDS: FERROUS SULFATE 325 MG TAB PO SCH ×2 (08:21→08:24)
[2023-04-28] MEDS: PRENATAL VITAMIN 1 TAB PO SCH (08:22)
[2023-04-28] MEDS: DOCUSATE SODIUM 100 MG CAP PO SCH (08:22)
[2023-04-28] MEDS: LABETALOL HCL 100 MG TAB PO SCH (08:22)
[2023-04-28] MEDS: ceFAZolin 2000MG 2,000 MG/15 ML SYR IV SCH (08:28)
[2023-04-28] MEDS: CLINDAMYCIN/D5W 900 MG/50 ML BAG IV SCH (09:01)
== END 2023-04-28 12:55 | disposition home or self-care (01) | DRG 807 ==
LOC: OPB 09:22 → 4S1 09:25 → 4E2 04-27 02:08